=== PATIENT | female | born 1960 | race Caucasian/White ===

== ENCOUNTER 2022-07-09 10:33 | Emergency (ER) | payer OTHER, SELFPAY ==
[2022-07-09 10:53] VITALS: BP 98/62; PULSE 68; RESP 16; TEMP 36.7; O2SAT 97; BMI 26.5
== END 2022-07-09 12:21 | disposition left against medical advice (07) ==
LOC: ED 12:15
DX: Z53.21 Procedure and treatment not carried out due to patient leaving prior to being seen by health care provider (principal)

== ENCOUNTER 2023-02-02 10:17 | Emergency (ER) | payer OTHER, SELFPAY ==
[2023-02-02] VITALS (17 sets, daily range): BP systolic 101–119; BP diastolic 45–65; PULSE 82–101; RESP 16; TEMP 37.4; O2SAT 89–97
--- NOTE | 2023-02-02 10:39 | CRLHL7_ITS ---
For Patients: As a result of the Cures Act, medical imaging exams and procedure reports are released immediately into your electronic medical record. You may view this report before your referring provider. If you have questions, please contact your health care provider. INDICATION: surgery T12 to pelvis on January 10 back pain TECHNIQUE: 3-view lumbar spine. COMPARISON: none FINDINGS: Lumbar spine fusion hardware appears intact extending from the ileum cephalad to the visualized thoracic spine. Vascular stent. No hardware complication or fracture. IMPRESSION: Intact hardware. Dictated by Jason Toscano MD @ 02/02/2023 12:24:57 PM (Electronically Signed)
--- NOTE | 2023-02-02 10:39 | CRLHL7_ITS ---
For Patients: As a result of the Cures Act, medical imaging exams and procedure reports are released immediately into your electronic medical record. You may view this report before your referring provider. If you have questions, please contact your health care provider. INDICATION: Pain TECHNIQUE: 2-view thoracic spine. COMPARISON: none FINDINGS: Surgical hardware extending from T10 inferiorly and at the cervical thoracic junction. Hardware appears intact. Degenerative changes. No fracture. IMPRESSION: No acute findings. Dictated by Jason Toscano MD @ 02/02/2023 12:25:42 PM (Electronically Signed)
[2023-02-02 11:05] LABS: Basophils Percent Auto 0.1 % (0.0-3.0); Eosinophils Percent Auto 2.7 % (0.0-7.0); Hematocrit 32.3 % (33.0-51.0); Hemoglobin* 10.8 gm/dL (12.0-16.0); Immature Granulocytes Pct Auto 0.3 %; Lymphocytes Percent Auto 20.6 % (20-44); Mean Corpuscular HGB Conc 33 gm/dL (32-36); Mean Corpuscular Hemoglobin 29 pg (26-34); Mean Corpuscular Volume 86 fL (80-100); Monocytes Percent Auto 13.3 % (0.0-11.0); Platelet Count* 450 K/uL (140-440); RDW Coefficient of Variation % 12.5 % (11.5-15.5); Red Blood Count 3.75 m/uL (4.00-5.20); White Blood Count* 13.39 K/uL (4.50-11.00)
[2023-02-02 11:09] LABS: Slide Review Reflex No
[2023-02-02] MEDS: 0.9 % SODIUM CHLORIDE 1000 ml 1,000 ML 6000 ML IV (11:17)
[2023-02-02] MEDS: AMPICILLIN/SULBACTAM 3 GM in 0.9 % SODIUM CHLORIDE Mini-bag 100 ML IVPB (11:17)
[2023-02-02 11:22] LABS: Chloride* 90 mmol/L (96-114); Sodium* 133 mmol/L (135-149)
[2023-02-02 11:25] LABS: Blood Urea Nitrogen* 11 mg/dL (7-30); Carbon Dioxide* 34 mmol/L (20-32); Creatinine* 1.2 mg/dL (0.5-1.5); Est. Creatinine Clearance* 37.62; Estimated Glomerular Filt Rate 52 ml/min
[2023-02-02 11:26] LABS: Calcium* 9.1 mg/dL (8.4-10.6); Glucose* 217 mg/dL (60-115)
[2023-02-02 11:27] LABS: Potassium* 2.8 mmol/L (3.6-5.1)
--- NOTE | 2023-02-02 11:33 | ED_ITS ---
HPI - General Adult General Chief complaint: Skin/Abscess/Foreign Body Stated complaint: Back pain/post op Time Seen by Provider: 02/02/23 10:32 History of Present Illness HPI narrative: Patient is a 62 year white female who had extensive spine fusion surgery at the [facility] about 3 weeks ago. She is concerned about her wound. She reports no fevers or chills, has had limited appetite. She has been on medication postoperatively does take oxycodone for pain, and is on blood pressure medication and hydrochlorothiazide and Crestor. Patient reports she has had some generalized malaise. But no rigors or chills. She has noticed the wound has been open slightly and occasionally there is a little bit of moisture on her shirt. Related Data Home Medications Medication Instructions Recorded Confirmed amlodipine 5 mg tablet 5 mg PO DAILY 07/09/22 02/02/23 aspirin 81 mg tablet,delayed 81 mg PO DAILY 07/09/22 02/02/23 release hydrochlorothiazide 12.5 mg tablet 12.5 mg PO DAILY 07/09/22 02/02/23 lisinopril 10 mg tablet 10 mg PO DAILY 07/09/22 02/02/23 metoprolol tartrate 25 mg tablet 25 mg PO DAILY 07/09/22 02/02/23 rosuvastatin 5 mg tablet (Crestor) 5 mg PO DAILY 07/09/22 02/02/23 oxycodone 10 mg tablet 5 mg PO 3XD 02/02/23 02/02/23 Previous Rx's Medication Instructions Recorded amoxicillin 875 mg-potassium 1 tab PO BID #14 tabs 02/02/23 clavulanate 125 mg tablet Allergies Allergy/AdvReac Type Severity Reaction Status Date / Time ibuprofen Allergy Severe Verified 02/02/23 10:28 cefazolin [From Ancef] Allergy Rash Verified 02/02/23 10:28 erythromycin base Allergy Rash Verified 02/02/23 10:28 morphine Allergy Unknown Verified 02/02/23 10:31 aspirin Allergy Severe Uncoded 07/09/22 10:57 codine Allergy Severe Rash Uncoded 07/09/22 10:57 ancef Allergy Unknown Uncoded 07/09/22 10:57 flu shot Allergy Unknown Uncoded 07/09/22 10:57 Review of Systems Status of ROS: Reports: 6 or more systems reviewed and unremarkable except as noted in History and below PFSH PFSH Social History Smoking Status: Former smoker Do you use any of these nicotine containing products: None Second hand tobacco smoke exposure: No How often do you have a drink containing alcohol: never AUDIT-C Alcohol total score: 0 Non-prescribed substance use: denies use service: No Exam Narrative: Exam Narrative: Objective: The patient is alert, vital signs look largely unremarkable temperature is borderline at 99. Patient is alert orient x3 no distress Neurologic is grossly nonfocal Her lengthy postoperative spinal wound shows some mild erythema next to the wound that looks like generalized healing, she has got some whitish debris that looks like healing as well and not purulence. A wound culture was obtained. Neurologic is nonfocal upper lower extremities. She is ambulatory without difficulty. Const: Vital Signs, click to edit/add: Vital Signs - 24 hr 02/02/23 10:24 Temperature 99.3 F Pulse Rate [Left P ulse Oximeter] 101 H Respiratory Rate 16 Blood Pressure [Ri ght Upper Arm] 105/65 Pulse Oximetry 95 Oxygen Delivery Me thod Room Air Course Vital Signs Vital signs: Initial Vital Signs Temperature 99.3 F 02/02/23 10:24 Temperature Source Temporal Artery Scan 02/02/23 10:24 Pulse Rate 101 H 02/02/23 10:24 Respiratory Rate 16 02/02/23 10:24 Blood Pressure 105/65 02/02/23 10:24 Blood Pressure Mean 78 02/02/23 10:24 Blood Pressure Position Sitting 02/02/23 10:24 Pulse Oximetry 95 02/02/23 10:24 Oxygen Delivery Method Room Air 02/02/23 10:24 Vital Signs Temperature 99.3 F 02/02/23 10:24 Pulse Rate 101 H 02/02/23 10:24 Respiratory Rate 16 02/02/23 10:24 Blood Pressure 105/65 02/02/23 10:24 Pulse Oximetry 95 02/02/23 10:24 Oxygen Delivery Method Room Air 02/02/23 10:24 Temperature 99.3 F 02/02/23 10:24 Pulse Rate 101 H 02/02/23 10:24 Respiratory Rate 16 02/02/23 10:24 Blood Pressure 105/65 02/02/23 10:24 Pulse Oximetry 95 02/02/23 10:24 Oxygen Delivery Method Room Air 02/02/23 10:24 Medical Decision Making MDM Narrative Medical decision making narrative: [age] year white female smoker with recent back surgery 3 weeks ago. At this point I think I would check a white count, blood cultures, CRP. She does not appear to have a grossly infected surgical incision, but because it is slightly opened throughout with some whitish material that looks more like healing debris, I would put her on antibiotic will give her IV Unasyn and Augmentin for home, she has a follow-up with a spine surgical team within the next few days. Light activity recommended, keep the wound clean with soap and water either shower bath as per direction of her surgeon team. she can remain on her same medications. Return as needed. Patient also has a quite low potassium at 2.8, will give her 2 bumps of IV 10 mEq potassium. Would have her hold her hydrochlorothiazide for few days and then recheck this with primary care. Addendum: 1:22 p.m.: The patient's x-rays by my review show intact hardware, Radiology agrees both thoracic and lumbar. No evidence of loosening or other soft tissue swelling. Laboratory studies show slightly elevated white count, CRP is elevated at about 17 she has just couple weeks postop, she does have some mild redness along her wound that certainly could account for minimal wound infection and should be treated with Unasyn and followed with Augmentin for home. She can continue her home medications. Also she was noted to have a low potassium at 2.8, and she was given 2 bumps a 10 mEq of potassium which she has good air in the mid 3 range, also would recommend she hold her height hydrochlorothiazide until recheck to. She should recheck with regular doctor within the next few days and probably repeat her blood work both potassium and CRP, and follow-up with her surgical team as needed. Wound care instructions described. Return as needed. Lab Data Labs: Lab Results 02/02/23 Range/Units 10:53 WBC 13.39 H (4.50-11.00) K/uL RBC 3.75 L (4.00-5.20) m/uL Hgb 10.8 L (12.0-16.0) gm/dL Hct 32.3 L (33.0-51.0) % MCV 86 (80-100) fL MCH 29 (26-34) pg MCHC 33 (32-36) gm/dL RDW Coeff of [place] 12.5 (11.5-15.5) % Plt Count 450 H (140-440) K/uL Neut % (Auto) 63.0 (42.0-72.0) % Lymph % (Auto) 20.6 (20-44) % [place] % (Auto) 13.3 H (0.0-11.0) % Eos % (Auto) 2.7 (0.0-7.0) % Baso % (Auto) 0.1 (0.0-3.0) % Neut # (Auto) 8.40 H (1.7-7.0) K/uL Lymph # (Auto) 2.80 (0.90-2.90) K/uL [place] # (Auto) 1.80 H (0.00-0.90) K/UL Eos # (Auto) 0.40 (0.00-0.50) K/uL Baso # (Auto) 0.00 (0.00-0.30) K/uL Sodium 133 L (135-149) mmol/L Potassium 2.8 L* (3.6-5.1) mmol/L Chloride 90 L (96-114) mmol/L Carbon Dioxide 34 H (20-32) mmol/L BUN 11 (7-30) mg/dL Creatinine 1.2 (0.5-1.5) mg/dL Estimated Creat Clear 37.62 Estimated GFR 52 ml/min Glucose 217 H (60-115) mg/dL Calcium 9.1 (8.4-10.6) mg/dL C-Reactive Protein 17.8 H (0.5-1.0) mg/dL Discharge Plan Discharge Clinical Impression: Postoperative wound breakdown, Fusion of spine Patient Disposition: Home w/ Parent or Adult Condition: Stable Additional Instructions: Instructions as per your surgeon, recommend follow-up with the surgical team within the next week. Discuss ongoing medication management with your surgical team or primary care doctor in the next 2-3 days. Would recommend Augmentin orally 2 times a day for the next 7 days. Recommend yogurt in your diet, and cleansing of the back wound with soap and water couple times a day either in a bath or shower. Light activity. I would stop your hydrochlorothiazide medicine for the next few days, until you talk to primary care about this again. Would visit your primary care doctor within the next 3-4 days to recheck her potassium level and year inflammation level from the surgery. Return to the ED if problems or concerns. Activity Level: Light activity Discharge Diet: Heart Healthy (2 gm sodium, low fat) Prescriptions: New amoxicillin-pot clavulanate 875-125 mg tablet 1 tab PO BID Qty: 14 0RF No Action amlodipine 5 mg tablet 5 mg PO DAILY aspirin 81 mg tablet,delayed release (DR/EC) 81 mg PO DAILY metoprolol tartrate 25 mg tablet 25 mg PO DAILY lisinopril 10 mg tablet 10 mg PO DAILY rosuvastatin [Crestor] 5 mg tablet 5 mg PO DAILY hydrochlorothiazide 12.5 mg tablet 12.5 mg PO DAILY oxycodone 10 mg tablet 5 mg PO 3XD Follow Up/Referrals: Provider,Not a Local [Primary Care Provider] - Stand Alone Forms: [employer] Info Instructions
[2023-02-02 12:22] LABS: C Reactive Protein* 17.8 mg/dL (0.5-1.0)
[2023-02-02] MEDS: POTASSIUM CHLORIDE 10 MEQ/100 ML PIGGYBACK 100 MEQ IVPB ×2 (12:29→13:28)
== END 2023-02-02 14:52 | disposition home or self-care (01) ==
PROVIDERS: Emergency Provider Family Medicine
DX: T81.31XA Disruption of external operation (surgical) wound, not elsewhere classified, initial encounter (principal)
CPT/HCPCS: 36415; 72070; 72100; 80048; 85025; 86140; 87040; 87070; 87186; 96365; 96366; 99284; J0295; J3480; J7030

== ENCOUNTER 2023-05-29 10:42 | Outpatient (CLI) | payer OTHER, SELFPAY ==
--- NOTE | 2023-05-29 11:00 | CRLHL7_ITS ---
For Patients: As a result of the Century Cures Act, medical imaging exams and procedure reports are released immediately into your electronic medical record. You may view this report before your referring provider. If you have questions, please contact your health care provider. INDICATION: Kidney malignancy. TECHNIQUE: CT of the chest, abdomen pelvis with IV contrast. 78 cc of Isovue-370 administered intravenously. FINDINGS: Bilateral mammoplasty change. Thoracic aortic calcification without thoracic aortic aneurysm. No central PE. No axillary, mediastinal adenopathy. Coronary artery calcifications. No pericardial effusion. No pneumothorax or pleural effusion. No suspicious liver lesion. Non cirrhotic liver morphology. Patent portal and hepatic veins. Patent splenic and mesenteric veins. No splenomegaly. Minor scarring lower pole right kidney. No suspicious renal mass seen in the corticomedullary phase. Aortic stenting. No abdominal aortic aneurysm. Bilateral SI joint fusion and lumbosacral fusion decompression and disc spacer. Multilevel with fusion extending from the thoracic spine. No suspicious adnexal lesion. Hysterectomy change. Urinary bladder appears unremarkable. No free intraperitoneal air or fluid. No suspicious pancreatic abnormality. No gallbladder distention. IMPRESSION: 1. No suspicious renal lesions seen. 2. The chest appears unremarkable. 3. Aortic stent. Please note that all CT scans at this facility use dose modulation, iterative reconstruction, and/or weight-based dosing when appropriate to reduce radiation dose to as low as reasonably achievable. Dictated by Harsh Quan MD @ 05/31/2023 9:06:23 AM (Electronically Signed)
[2023-05-29 11:15] LABS: Creatinine* 1.2 mg/dL (0.5-1.5); Estimated Glomerular Filt Rate 52 ml/min
== END 2023-05-29 10:43 | disposition home or self-care (01) ==
PROVIDERS: Visit Provider Urology
DX: C64.9 Malignant neoplasm of unspecified kidney, except renal pelvis (principal)
CPT/HCPCS: 36415; 71260; 74177; 82565; Q9967

== ENCOUNTER 2023-11-14 17:09 | Outpatient (REF) | payer OTHER, SELFPAY ==
[2023-11-14 18:05] LABS: Chloride* 100 mmol/L (96-114); Potassium* 4.4 mmol/L (3.6-5.1); Sodium* 138 mmol/L (135-149)
[2023-11-14 18:08] LABS: Anion Gap 7 mEq/L (7-15); Blood Urea Nitrogen* 25 mg/dL (7-30); Carbon Dioxide* 31 mmol/L (20-32); Creatinine* 1.1 mg/dL (0.5-1.5); Estimated Glomerular Filt Rate 57 ml/min
[2023-11-14 18:09] LABS: Glucose* 138 mg/dL (60-115)
== END 2023-11-14 17:10 | disposition home or self-care (01) ==
LOC: NPINS 17:09
DX: R94.4 Abnormal results of kidney function studies (principal)
CPT/HCPCS: 80048

== ENCOUNTER 2025-05-03 08:32 | Outpatient (CLI) | payer OTHER, SELFPAY ==
--- NOTE | 2025-05-03 09:00 | CRLHL7_ITS ---
For Patients: As a result of the Century Cures Act, medical imaging exams and procedure reports are released immediately into your electronic medical record. You may view this report before your referring provider. If you have questions, please contact your health care provider. Indication: LOWER EXTREMITY EDEMA, MALIGNANT NEOPLASM OF KIDNEY Technique: CT Chest/Abd/Pelvis W/78CC [id number] intravenous contrast Please note that all CT scans at this facility use dose modulation, iterative reconstruction, and/or weight-based dosing when appropriate to reduce radiation dose to as low as reasonably achievable. Comparison: 05/29/2023 Findings: In the chest, bilateral subpectoral breast implants are intact. No mediastinal, hilar or axillary adenopathy. Stable nodule within the right thyroid lobe. Atherosclerotic changes. No pleural or pericardial effusion. No infiltrate or edema. No pulmonary nodule. Postop changes to the thoracolumbar junction and cervicothoracic junction. Multilevel degenerative changes above the thoracic fusion. No acute fracture. In the abdomen, stable focal fat deposition within the liver adjacent to the falciform ligament. The gallbladder is normal. No calcified gallstones or biliary obstruction. The pancreas is normal. Normal spleen. Left adrenal gland is normal. Stable nodule within the right adrenal gland. Atherosclerotic changes. No aneurysm. No hiatal hernia. Stable right periaortic lymph node. Posttreatment changes to the lower pole of the right kidney unchanged. No hydronephrosis or perinephric stranding. In the pelvis, the bladder is normal. The uterus is absent. No adnexal mass. No bowel obstruction or free air. No free fluid. No abscess. Normal appendix. Similar sub cm pelvic and inguinal lymph nodes. Spinal fixation hardware appears intact. No evidence of venous thrombosis. Aortic stent again noted. Impression: Similar appearance of the lower pole right kidney. Stable right adrenal nodule. Stable subcentimeter lymph nodes. No compressive mass. Please note that all CT scans at this facility use dose modulation, iterative reconstruction, and/or weight-based dosing when appropriate to reduce radiation dose to as low as reasonably achievable. Dictated by Jason Toscano MD @ 05/03/2025 12:40:28 PM (Electronically Signed)
[2025-05-03 09:40] LABS: Creatinine* 1.8 mg/dL (0.5-1.5); Estimated Glomerular Filt Rate 31 ml/min
== END 2025-05-03 08:33 | disposition home or self-care (01) ==
LOC: CT 08:33
PROVIDERS: Visit Provider Urology
DX: C64.9 Malignant neoplasm of unspecified kidney, except renal pelvis (principal); R60.0 Localized edema
CPT/HCPCS: 36415; 71260; 74177; 82565; Q9967